=== PATIENT | female | born 1975 | race Caucasian/White ===

== ENCOUNTER 2022-04-16 11:31 | Emergency (ER) | payer OTHER, SELFPAY ==
[2022-04-16 13:25] VITALS: BP 174/101; PULSE 78; RESP 19; TEMP 37; O2SAT 98; BMI 32.0
[2022-04-16 13:43] LABS: Appearance Urine CLEAR; Color Urine YELLOW; Glucose Urine UA NEG (NEG); Leukocyte Esterase Urine NEG (NEG); Nitrite Urine NEG (NEG); PH 5.5 (5.0-8.0); Specific Gravity - Urine >= 1.030 (1.005-1.025); Urine Blood NEG (NEG); Urine Ketones NEG (NEG); Urine Protein NEG (NEG-TRACE)
[2022-04-16 13:45] LABS: UPreg QC Valid YES; Urine Pregnancy NEGATIVE (NEGATIVE)
[2022-04-16 13:57] LABS: Alanine Aminotransferase 17 U/L (0-31); Albumin Level 4.4 g/dL (3.5-5.0); Alkaline Phosphatase 74 U/L (39-117); Anion Gap 12 (12-20); Aspartate Amino Transferase 20 U/L (5-31); Bilirubin Direct 0.2 mg/dL (0.0-0.5); Bilirubin Total 0.5 mg/dL (0.0-1.0); Blood Urea Nitrogen 13 mg/dL (9-16); Calcium 9.6 mg/dL (8.4-10.2); Carbon Dioxide 24 mmol/L (22-29); Chloride 104 mmol/L (96-108); Creatinine Clr Calc Pharmacy 84.5; Estimated Glomerular Filt Rate > 60; Glucose Random 88 mg/dL (60-115); Lipase 43 U/L (8-78); Sodium 136 mmol/L (135-145); Total Protein 7.7 g/dL (6.5-8.0)
== END 2022-04-16 20:57 | disposition left against medical advice (07) ==
PROVIDERS: Emergency Provider Emergency Medicine; PCP Internal Medicine
DX: R10.9 Unspecified abdominal pain (principal); R14.0 Abdominal distension (gaseous); Z79.899 Other long term (current) drug therapy
CPT/HCPCS: 36415; 80048; 80076; 81003; 81025; 83690; 99282; 99283

== ENCOUNTER 2022-05-15 09:49 | Outpatient (REF) | payer OTHER, SELFPAY ==
--- NOTE | ~2022-05-15 | US_ITS ---
EXAMINATION: US ABDOMEN COMPLETE CLINICAL INFORMATION: Epigastric pain. COMPARISON: None TECHNIQUE: Real-time imaging of the abdominal viscera. FINDINGS: PANCREAS: Normal. ABDOMINAL AORTA: The proximal, mid, and distal segments are normal in caliber. INFERIOR VENA CAVA: Visualized portions are normal. LIVER: The liver is normal in size. The liver contour is normal. Liver echotexture is slightly increased. No focal hepatic lesion. There is no intrahepatic biliary duct dilatation seen. GALLBLADDER: The gallbladder is contracted in a fasting patient. There is a gallstone in the gallbladder. There are several echogenic densities adjacent to the gallbladder wall questionable for calcifications or small polyps. COMMON BILE DUCT: Normal in caliber measuring 0.4 cm in diameter. RIGHT KIDNEY: Mild fullness of the right renal pelvis. No definite hydronephrosis. Question 3 mm right renal stone. No focal parenchymal lesions. The kidney measures 9.9 cm in maximum dimension. LEFT KIDNEY: There are multiple stones largest measuring 5 mm in the mid and lower pole. There is mild fullness of the left renal pelvis. No definite hydronephrosis. No focal parenchymal lesions. The kidney measures 10.6 cm in maximum dimension. SPLEEN: Upper normal in size. The spleen measures 12.9 cm in maximum dimension. FREE FLUID: None. US/US abdomen complete IMPRESSION: Echogenic liver. Contracted gallbladder in nonfasting patient. Gallstone. Question small gallbladder wall polyp or calcification. Left renal stones and question small right renal stone. Upper normal-size spleen.
== END 2022-05-15 09:50 | disposition home or self-care (01) ==
LOC: HO.HMGCX 09:49
PROVIDERS: PCP Internal Medicine; Visit Provider Internal Medicine Gastroenterology
DX: R10.13 Epigastric pain (principal)
CPT/HCPCS: 76700

== ENCOUNTER 2023-12-24 07:41 | Day surgery (SDC) | payer OTHER, SELFPAY ==
[2023-12-20 14:02] VITALS: BMI 35.4
--- NOTE | 2023-12-23 14:34 | HO.ANESPROP2 ---
Documented by User: Rebecca Salguero NP 12/23/23 14:34 HPI - Anesthesia Eval Consult details Narrative: 48yo F for Upper Endoscopy and Colonoscopy [facility] Past Medical History Medical History GERD (gastroesophageal reflux disease) IBS (irritable bowel syndrome) Renal calculi Anxiety Depression Surgical History Surgical History Hx of cone biopsy of cervix History of History of ureteroscopy History of esophagogastroduodenoscopy (EGD) H/O colonoscopy Social History Social History Patient Tobacco Use Status: Never used Tobacco Meds Allergies Allergy/AdvReac Type Severity Reaction Status Date / Time sulfamethoxazole Allergy Unknown Unknown Verified 12/24/23 08:01 [From Bactrim] trimethoprim [From Bactrim] Allergy Unknown Unknown Verified 12/24/23 08:01 latex Allergy Unknown Verified 12/24/23 08:01 Home Medications Medication Instructions Recorded Confirmed Last Taken Type cholecalciferol (vitamin D3) 25 25 mcg PO DAILY 12/20/23 12/20/23 Unknown History mcg (1,000 unit) capsule (Vitamin D3) hyoscyamine sulfate 0.125 mg tablet 0.125 mg PO QID 12/20/23 12/20/23 Unknown History lorazepam 0.5 mg tablet 0.5 mg PO TID PRN Anxiety 12/20/23 12/20/23 Unknown History magnesium oxide 300 mg PO DAILY 12/20/23 12/20/23 Unknown History omeprazole 20 mg capsule,delayed 20 mg PO DAILY 12/20/23 12/20/23 Unknown History release sertraline 100 mg tablet 100 mg PO DAILY 12/20/23 12/20/23 Unknown History sertraline 25 mg tablet 25 mg PO DAILY 12/20/23 12/20/23 Unknown History zolpidem 10 mg tablet 10 mg PO BEDTIME 12/20/23 12/20/23 Unknown History Exam Height,Weight and Vital Signs: Height 5 ft 1.75 in Weight 87.09 kg Assessment and Plan Assessment Anesthesia Assessment: Chart Reviewed Documented by User: Floresita Shi MD 12/24/23 09:23 [facility] Active Problems Active Problems: Increased BMI. Denies NEEL Vomiting yesterday with prep. Some nausea earlier today which has since resolved Anxiety Past Medical History Medical History GERD (gastroesophageal reflux disease) IBS (irritable bowel syndrome) Renal calculi Anxiety Depression Family History Family history of problems with anesthesia: No Surgical History Surgical History Hx of cone biopsy of cervix History of History of ureteroscopy History of esophagogastroduodenoscopy (EGD) H/O colonoscopy History of Problems with Anesthesia: No Social History Social History Patient Tobacco Use Status: Never used Tobacco Meds Allergies Allergy/AdvReac Type Severity Reaction Status Date / Time sulfamethoxazole Allergy Unknown Unknown Verified 12/24/23 08:01 [From Bactrim] trimethoprim [From Bactrim] Allergy Unknown Unknown Verified 12/24/23 08:01 latex Allergy Unknown Verified 12/24/23 08:01 Home Medications Medication Instructions Recorded Confirmed Last Taken Type cholecalciferol (vitamin D3) 25 25 mcg PO DAILY 12/20/23 12/20/23 Unknown History mcg (1,000 unit) capsule (Vitamin D3) hyoscyamine sulfate 0.125 mg tablet 0.125 mg PO QID 12/20/23 12/20/23 Unknown History lorazepam 0.5 mg tablet 0.5 mg PO TID PRN Anxiety 12/20/23 12/20/23 Unknown History magnesium oxide 300 mg PO DAILY 12/20/23 12/20/23 Unknown History omeprazole 20 mg capsule,delayed 20 mg PO DAILY 12/20/23 12/20/23 Unknown History release sertraline 100 mg tablet 100 mg PO DAILY 12/20/23 12/20/23 Unknown History sertraline 25 mg tablet 25 mg PO DAILY 12/20/23 12/20/23 Unknown History zolpidem 10 mg tablet 10 mg PO BEDTIME 12/20/23 12/20/23 Unknown History Exam Height,Weight and Vital Signs: Height 5 ft 1.75 in Weight 87.09 kg Vital Signs Temp Pulse Resp BP Pulse Ox O2 Del Method 12/24/23 08:12 98.1 F 94 18 146/87 H 96 Room Air Pertinent Lab Results Pertinent Lab Results: Lab Results 12/24/23 Range/Units 08:00 Urine Test NEGATIVE (NEGATIVE) Airway Mallampati Class: III (Some TMJ issues. Clicking with mouth opening. Small mouth opening) TM Dist: >3cm Neck ROM: Full Loose/Missing/Broken Teeth: No (Crowns intact. Denies broken, loose, missing teeth) Heart: RRR Lungs: CTAB Assessment and Plan Assessment Anesthesia Assessment: Anesthesia Plan Discussed and Chart Reviewed Final Anesthetic Review Family History of Problems with Anesthesia: No History of Problems with Anesthesia: No NPO: Yes ASA Class: II Final Preanesthetic Review: No Changes in Pt Med Stat, Meds/Allgs Chart Reviewed, Consent Obtained/Reviewed and Anes Risks/Benef Reviewed Patient Risk: Low Procedure Risk: Low Assessment/Block/Sedation in SS: Assess/Block/Sedation-SS Anesthetic Plan Anesthetic Plan: MAC: and TIVA Disposition: Standard PACU
[2023-12-24 08:00] VITALS: BMI 34.5
[2023-12-24] MEDS: Lactated Ringers 1,000 ML 100 ML IVCONT (08:09)
[2023-12-24 08:12] VITALS: BP 146/87; PULSE 94; RESP 18; TEMP 36.7; O2SAT 96
[2023-12-24 08:26] LABS: UPreg QC Valid YES; Urine Pregnancy NEGATIVE (NEGATIVE)
--- NOTE | 2023-12-24 09:10 | MHC.SHP ---
Pre-Procedural Eval Section A - 24 Hr Update-Section A only Date of Service: 12/24/23 Section B - Complete if H&P > 30 days Chief Complaint: rectal bleeding,gerd, Details of Present Illness: see H&P no changes Relevant Family History (Specify if Yes): No Relevant Social History: None Present Medications: see Short Stay Collaborative assessment Medical History: No relevant PMH Allergies: Allergies Allergy/AdvReac Type Severity Reaction Status Date / Time sulfamethoxazole Allergy Unknown Unknown Verified 12/24/23 08:01 [From Bactrim] trimethoprim [From Bactrim] Allergy Unknown Unknown Verified 12/24/23 08:01 latex Allergy Unknown Verified 12/24/23 08:01 Review of Systems Sugical H&P ROS: Negative: Constitution, Cardiovascular, Respiratory, Neurological, Psychiatric, Hem-Onc, Allergic/Immunologic, Gastrointestinal, Genitourinary, Musculoskeletal, Integumentary, Endocrine and Eyes/Ears/Nose/Throat Exam Surgical H&P Exam: Normal: HEENT, Normal: Heart, Normal: Lungs, Normal: Extremities, Normal: Abdomen, Normal: Skin and Normal: Neurological Plan Diagnosis/Plan: Unchanged I have reviewed the history and physical and performed a pertinent physical examination on my patient. No changes have occurred unless specified. Time Spent With Patient Time: Total time managing care of this patient today ____ minutes.
[2023-12-24 10:08] VITALS: BP 127/79; PULSE 97; RESP 17; TEMP 36.6; O2SAT 100
[2023-12-24 10:23] VITALS: BP 124/60; PULSE 90; RESP 16; TEMP 36.6; O2SAT 99
--- NOTE | 2023-12-24 10:40 | OP_ITS ---
DATE OF SERVICE: 12/24/2023 SURGEON: Eric Maravilla MD INDICATIONS: 1. Gastroesophageal reflux disease. 2. Rectal bleeding. PREOPERATIVE DIAGNOSIS: POSTOPERATIVE DIAGNOSIS: PROCEDURE PERFORMED: Upper endoscopy with biopsy, colonoscopy to the cecum with biopsy and snare polypectomy. ESTIMATED BLOOD LOSS: COMPLICATIONS: ANESTHESIA: Monitored anesthesia care. ASSISTANTS: SPECIMENS: DESCRIPTION OF PROCEDURE: A history and physical was performed. The risks and benefits of the procedure were explained to the patient. Informed consent was obtained. The patient was placed in the left lateral decubitus position. The Olympus video gastroscope was introduced into the esophagus, stomach, and duodenum. Examination was performed. The scope was removed. She was repositioned for colonoscopy. A digital rectal exam was performed and was found to be normal. The Olympus pediatric video colonoscope was introduced into the rectum and advanced to the cecum. The cecum was identified by transillumination, palpation, and identification of ileocecal valve. Examination was performed. The scope was removed. She tolerated the procedure well and was returned to the recovery area in stable condition. FINDINGS: Upper endoscopy: 1. Esophagus: The esophagus showed a slightly irregular EG junction. This was biopsied. There was no esophagitis. 2. Stomach: The stomach showed no evidence of masses, ulcers, or polyps. Antral biopsies were obtained to evaluate for H pylori. They were placed in the same jar as the EG junction biopsies. 3. Duodenum: The bulb and 2nd portion were normal. Colonoscopy: The terminal ileum was not examined. The visualized colonic mucosa was normal. The quality of the prep was good. In the cecum, was a less than 5 mm polyp, which was removed with a biopsy forceps. At 20 cm, there was a single 6 mm polyp, which was removed with a cold snare and recovered via suction. No other polyps were identified. Retroflexed examination did show internal hemorrhoids. IMPRESSION: 1. Gastroesophageal reflux disease. 2. Colon polyps. RECOMMENDATION: Follow up the biopsy results. MD JUAN Tovar/GRETAL / [id number]
== END 2023-12-24 11:07 | disposition home or self-care (01) ==
PROVIDERS: Nurse Practitioner; PCP Internal Medicine; Visit Provider Internal Medicine Gastroenterology
PROC: (CPT 43239; principal; 2023-12-24 09:30)
DX: K22.89 Other specified disease of esophagus (principal); K21.9 Gastro-esophageal reflux disease without esophagitis; D12.0 Benign neoplasm of cecum; D12.5 Benign neoplasm of sigmoid colon; K64.8 Other hemorrhoids; K62.5 Hemorrhage of anus and rectum; K58.9 Irritable bowel syndrome, unspecified
CPT/HCPCS: 43239; 45385; 45380; 81025; 88305; 88313; 88342; J2704